=== PATIENT | male | born 1950 | race Caucasian/White ===

== ENCOUNTER 2017-02-04 16:54 | Inpatient (IN) | payer MEDICARE, MEDICAID ==
[2017-02-04 19:37] LABS: Hematocrit 36 % (42-52); Hemoglobin 12.5 g/dl (14.0-18.0); Mean Corpuscular HGB Conc 34 g/dl (31-36); Mean Corpuscular Hemoglobin 31 pg (27-31); Mean Corpuscular Volume 90 fL (80-94); Mean Platelet Volume 8 um3 (7.4-10.4); Red Blood Count 4.05 10^6/ul (4.0-5.4); Red Cell Distribution Width 14 % (10.5-15); White Blood Count 8.8 10^3/ul (3.5-10.8)
[2017-02-04 19:46] LABS: Alcohol < 10 mg/dL (<10)
[2017-02-04 19:47] LABS: Albumin 3.6 g/dL (3.2-5.2); Anion Gap 6 mmol/L (2-11); BUN/Creatinine Ratio 40.6 (8-20); Blood Urea Nitrogen 39 mg/dL (6-24); CO2 Carbon Dioxide 32 mmol/L (22-32); Calcium 9.6 mg/dL (8.6-10.3); Chloride 100 mmol/L (101-111); EGFR African American 100.5 (>60); EGFR Non-African American 78.1 (>60); Glucose 100 mg/dL (70-100); Sodium 138 mmol/L (133-145); Total Protein 6.5 g/dL (6.4-8.9)
[2017-02-04 19:48] LABS: ALT 24 U/L (7-52); AST 41 U/L (13-39); Alkaline Phosphatase 124 U/L (34-104); C Reactive Protein 11.43 mg/L (< 5.00); Globulin 2.9 g/dL (2-4)
[2017-02-04 19:49] LABS: Troponin I 0.01 ng/mL (<0.04)
[2017-02-04 20:59] LABS: TSH (Thyroid Stimulating Horm) 1.95 mcIU/mL (0.34-5.60)
[2017-02-04] MEDS ORDERED: CMCS: Melatonin (NF) 3 MG TAB PO PRN (22:18)
[2017-02-04] MEDS ORDERED: Albuterol 2.5 MG/3 ML NEB.SOL* (0.083%) INH PRN (22:18)
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
[2017-02-05 03:06] LABS: Urine Bilirubin Negative (Negative); Urine Glucose Negative (Negative); Urine Nitrite Negative (Negative)
[2017-02-05] MEDS: Omeprazole CAP* 20 MG PO SCH (05:59)
[2017-02-05] MEDS: Docusate CAP* 100 MG PO SCH ×2 (09:40→21:21)
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
[2017-02-05] MEDS: Heparin VIAL(*) 5000 UNITS/ML VIAL (FIVE THOUSAND) SUBCUT SCH ×2 (13:52→21:21)
[2017-02-05] MEDS: Acetaminophen TAB* 325 MG PO PRN (21:21)
[2017-02-06] MEDS: Heparin VIAL(*) 5000 UNITS/ML VIAL (FIVE THOUSAND) SUBCUT SCH ×3 (06:26→21:45)
[2017-02-06] MEDS: Omeprazole CAP* 20 MG PO SCH (06:26)
[2017-02-06 07:15] LABS: Benzodiazepine Urine Screen None Detected (None Detect)
[2017-02-06] MEDS: Docusate CAP* 100 MG PO SCH ×2 (08:37→21:45)
--- NOTE | 2017-02-06 15:02 | RAD ---
INDICATION: Bilateral foot pain. Fall. COMPARISON: None TECHNIQUE: AP, lateral, and oblique views of each foot were obtained. FINDINGS: Right foot:. There are no acute bony findings. There is minor first MTP joint osteoarthritis and there is mild underlying osteopenia. The soft tissues are intact. Left foot: There is no acute bony change. There is minor first MTP joint osteoarthritis. There is underlying osteopenia. The soft tissues are normal. IMPRESSION: NO ACUTE BONY FINDINGS.
[2017-02-07] MEDS: Omeprazole CAP* 20 MG PO SCH (05:22)
[2017-02-07] MEDS: Heparin VIAL(*) 5000 UNITS/ML VIAL (FIVE THOUSAND) SUBCUT SCH ×3 (05:23→21:22)
[2017-02-07] MEDS: Docusate CAP* 100 MG PO SCH ×2 (10:52→21:22)
[2017-02-07] MEDS: Acetaminophen TAB* 325 MG PO PRN (21:30)
[2017-02-08] MEDS: Heparin VIAL(*) 5000 UNITS/ML VIAL (FIVE THOUSAND) SUBCUT SCH ×3 (06:10→21:06)
[2017-02-08] MEDS: Omeprazole CAP* 20 MG PO SCH (06:10)
[2017-02-08] MEDS: Docusate CAP* 100 MG PO SCH ×2 (10:03→21:06)
[2017-02-09] MEDS: Omeprazole CAP* 20 MG PO SCH (05:23)
[2017-02-09] MEDS: Heparin VIAL(*) 5000 UNITS/ML VIAL (FIVE THOUSAND) SUBCUT SCH ×3 (05:23→21:22)
[2017-02-09] MEDS: Acetaminophen TAB* 325 MG PO PRN (07:37)
[2017-02-09] MEDS: Docusate CAP* 100 MG PO SCH ×2 (07:37→21:22)
[2017-02-10] MEDS: Heparin VIAL(*) 5000 UNITS/ML VIAL (FIVE THOUSAND) SUBCUT SCH ×3 (06:05→21:10)
[2017-02-10] MEDS: Omeprazole CAP* 20 MG PO SCH (06:05)
[2017-02-10] MEDS: Acetaminophen TAB* 325 MG PO PRN (08:50)
[2017-02-10] MEDS: Docusate CAP* 100 MG PO SCH ×2 (08:50→21:10)
[2017-02-11] MEDS: Acetaminophen TAB* 325 MG PO PRN (04:14)
[2017-02-11] MEDS: Heparin VIAL(*) 5000 UNITS/ML VIAL (FIVE THOUSAND) SUBCUT SCH ×3 (05:53→21:49)
[2017-02-11] MEDS: Omeprazole CAP* 20 MG PO SCH (05:53)
[2017-02-11] MEDS: Docusate CAP* 100 MG PO SCH ×2 (07:48→20:18)
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
[2017-02-12] MEDS: Omeprazole CAP* 20 MG PO SCH (05:42)
[2017-02-12] MEDS: Heparin VIAL(*) 5000 UNITS/ML VIAL (FIVE THOUSAND) SUBCUT SCH ×3 (05:43→21:26)
[2017-02-12] MEDS: Docusate CAP* 100 MG PO SCH ×2 (08:29→21:26)
[2017-02-12] MEDS: Acetaminophen TAB* 325 MG PO PRN (10:14)
[2017-02-13] MEDS: Heparin VIAL(*) 5000 UNITS/ML VIAL (FIVE THOUSAND) SUBCUT SCH ×3 (06:33→22:35)
[2017-02-13] MEDS: Omeprazole CAP* 20 MG PO SCH (06:33)
[2017-02-13] MEDS: Docusate CAP* 100 MG PO SCH ×2 (09:06→22:35)
[2017-02-14] MEDS: Heparin VIAL(*) 5000 UNITS/ML VIAL (FIVE THOUSAND) SUBCUT SCH (06:41)
[2017-02-14] MEDS: Omeprazole CAP* 20 MG PO SCH (06:42)
[2017-02-14 08:12] VITALS: BP 107/64
[2017-02-14] MEDS: Docusate CAP* 100 MG PO SCH (08:28)
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
== END 2017-02-14 12:45 | DRG 57 ==
LOC: ED 16:54 → MED 22:13
PROVIDERS: ADMIT Hospitalist; ATTEND Internal Medicine
DX: G31.84 Mild cognitive impairment of uncertain or unknown etiology (principal); L89.151 Pressure ulcer of sacral region, stage 1; T76.91XA Unspecified adult maltreatment, suspected, initial encounter; Z74.2 Need for assistance at home and no other household member able to render care; I10 Essential (primary) hypertension; X58.XXXA Exposure to other specified factors, initial encounter; Y92.008 Other place in unspecified non-institutional (private) residence as the place of occurrence of the external cause; Z87.891 Personal history of nicotine dependence; Z83.3 Family history of diabetes mellitus; Z82.49 Family history of ischemic heart disease and other diseases of the circulatory system
CPT/HCPCS: 36415; 80053; 80307; 80320; 81003; 83605; 83735; 84443; 84484; 85025; 86140; A9270-GY; G0480; J1644

== ENCOUNTER 2019-05-25 11:46 | Emergency (ER) | payer MEDICARE, MEDICAID ==
[2019-05-25] MEDS ORDERED: NS 0.9% 1000 ML** 1,000 ML IV ONE (11:54)
--- NOTE | 2019-05-25 11:57 | ED ---
Lower Extremity - HPI Summary HPI Summary: This pt is a 69 Y/O M presenting to [facility] by EMS from [facility] for a CC of increased weakness and pain over the last couple days. He states that he has been feeling weaker and in more pain than usual. He states that he has a Hx of edema in his ankles and has seen no increase. He is unable to move his L hip through a full ROM due to the pain. He denies any fevers, chills, SOB , and CP. He is currently dehydrated. He states that movement and standing cause increased pain in his L hip. He is He has a Hx of HTN. He states that he has chronic L hip pain due to a surgery in 1981. - History of Current Complaint Chief Complaint: EDAltMentalStatus Stated Complaint: FALL PER EMS Time Seen by Provider: 05/25/19 11:49 Hx Obtained From: Patient, EMS Mechanism Of Injury: Fall From A Standing Position Onset of Pain: Immediate Onset/Duration: Still Present Severity Initially: Moderate Severity Currently: Moderate Pain Scale Used: 0-10 Numeric Timing: Constant Location: Is Discrete @ - L hip Associated Signs And Symptoms: Positive: Negative - chills, SOB, and CP, Weakness, Other - bilateral ankle edema. Negative: Fever Aggravating Factor(s): Standing, Movement Alleviating Factor(s): Nothing - Allergies/Home Medications Allergies/Adverse Reactions: Allergies Allergy/AdvReac Type Severity Reaction Status Date / Time No Known Allergies Allergy Verified 05/25/19 11:53 PMH/Surg Hx/FS Hx/Imm Hx Previously Healthy: Yes Cardiovascular History: Reports: Hx Hypertension Musculoskeletal History: Reports: Other Musculoskeletal History - L hip chronic pain Sensory History: Reports: Hx Contacts or Glasses Denies: Hx Hearing Aid Opthamlomology History: Reports: Hx Contacts or Glasses - Cancer History Hx Chemotherapy: No Hx Radiation Therapy: No - Surgical History Surgical History: Yes Other Surgical History: L hip surgery in 1982 - Immunization History Immunizations Up to Date: Yes Infectious Disease History: Denies: Traveled Outside the [place] in Last 30 Days - Family History Known Family History: Positive: Hypertension - Social History Occupation: Retired Lives: At [facility] Alcohol Use: Occasionally Hx Substance Use: No Substance Use Type: Reports: None Hx Tobacco Use: Yes Smoking Status (MU): Former Smoker Type: Cigarettes Review of Systems Negative: Fever, Chills Negative: Chest Pain Negative: Shortness Of Breath Negative: Vomiting, Nausea Positive: Decreased ROM - L leg due to pain from L hip , Edema - bilateral ankles , Other - L hip pain Positive: Weakness All Other Systems Reviewed And Are Negative: Yes Physical Exam - Summary Physical Exam Summary: VITAL SIGNS: Reviewed. GENERAL: Patient is a well-developed and nourished Elderly male who is lying comfortable in the stretcher. Patient is not in any acute respiratory distress. HEAD AND FACE: No signs of trauma. No ecchymosis, hematomas or skull depressions. No sinus tenderness. EYES: PERRLA, EOMI x 2, No injected conjunctiva, no nystagmus. EARS: Hearing grossly intact. Ear canals and tympanic membranes are within normal limits. MOUTH: Oropharynx within normal limits. Oral mucosa is very dry NECK: Supple, trachea is midline, no adenopathy, no JVD, no carotid bruit, no c- spine tenderness, neck with full ROM. CHEST: Symmetric, no tenderness at palpation LUNGS: Clear to auscultation bilaterally. No wheezing or crackles. CVS: Regular rate and rhythm, S1 and S2 present, no murmurs or gallops appreciated. ABDOMEN: Soft, non-tender. No signs of distention. No rebound no guarding, and no masses palpated. Bowel sounds are normal. EXTREMITIES: FROM in all major joints, no edema, no cyanosis or clubbing. Decreased ROM and pain in the L lower extremity due to L hip pain Bilateral lower extremity edema 1+ NEURO: alert but confused. No acute neurological deficits. Speech is normal and follows commands. SKIN: Dry and warm. Increase in Brett of skin Triage Information Reviewed: Yes Vital Signs On Initial Exam: Temp Pulse Resp BP SpO2 FiO2 97.8 F 97 16 163/123 93 05/25/19 11:49 05/25/19 11:49 05/25/19 11:49 05/25/19 11:49 05/25/19 11:49 Vital Signs Reviewed: Yes Procedures - Sedation Patient Received Moderate/Deep Sedation with Procedure: No Diagnostics - Laboratory Result Diagrams: 05/25/19 12:08 05/25/19 12:08 Lab Statement: Any lab studies that have been ordered have been reviewed, and results considered in the medical decision making process. - Radiology CXR Radiology Interpretation Completed By: Radiologist Summary of Radiographic Findings: Stigmata of obstructive lung disease. No acute pulmonary or cardiac process evident. ED physician has reviewed this report. 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 ED physician has reviewed this report. - CT Brain CT CT Interpretation Completed By: Radiologist Summary of CT Findings: No traumatic injury or acute intracranial process evident. Negative exam. ED physician has reviewed this report. - EKG 1211 Cardiac Rate: NL - 65 BPM EKG Rhythm: Atrial Fibrillation ST Segment: Normal Ectopy: None - An EKG at 1211 reveals AFIB at 65 BPM, nml axis, nml intervals. No STEMI. N 1209 Cardiac Rate: NL EKG Rhythm: Sinus Rhythm ST Segment: Normal Ectopy: None Summary of EKG Findings: An EKG at 1209 reveals NSR at 91 BPM, nml axis, nml intervals. No STEMI. No acute changes. Interpreted by Dr. Greenberg at 1210 2019. Lower Extremity Course/Dx - Course Assessment/Plan: This pt is a 69 Y/O M presenting to [facility] by EMS from [facility] for a CC of increased weakness and pain over the last couple days. He states that he has been feeling weaker and in more pain than usual. He states that he has a Hx of edema in his ankles and has seen no increase. He is unable to move his L hip through a full ROM due to the pain. He denies any fevers, chills, SOB, and CP. He is currently dehydrated. He states that movement and standing cause increased pain in his L hip. He is He has a Hx of HTN. He states that he has chronic L hip pain due to a surgery in 1981. Chest x -ray impression: Stigmata for DISEASE. NO ACUTE PULMONARY OR CARDIAC PROCESS EVIDENT. Blood work without a significant abnormality except for glucose of 127 , urinalysis is negative for UTI. Head CT impression: No traumatic injury or acute interconnected process evident. In the ED course the patient was given IV fluids for rehydration. 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 Since all work up is found to be within normal limits, and patient is feeling better, he will be discharged home with f/u with PCP. He was given tylenol. He has no other complaints. [facility] - Diagnoses Provider Diagnoses: Weakness, Chronic hip pain Discharge ED - Sign-Out/Discharge Documenting (check all that apply): Patient Departure - discharge - Discharge Plan Condition: Stable Disposition: HOME Patient Education Materials: Weakness (ED) Referrals: [facility] [Outside] - 2 Days Additional Instructions: PLEASE RETURN TO THE EMERGENCY DEPARTMENT FOR ANY NEW OR WORSENING SYMPTOMS AND FOLLOW UP WITH THE [facility] IN 1-3 DAYS FOR TO HELP FIND A PRIMARY CARE PHYSICIAN. - Billing Disposition and Condition Condition: STABLE Disposition: Home - Attestation Statements Document Initiated by Scribe: Yes Documenting Scribe: Rome Wilson Provider For Whom Ioanaibe is Documenting (Include Credential): Satya Greenberg MD Scribe Attestation: Rome Gonzales scribed for Satya Greenberg MD on 05/25/19 at 2131. Scribe Documentation Reviewed: Yes Provider Attestation: The documentation as recorded by the Rome myers accurately reflects the service I personally performed and the decisions made by Satya eagle MD Status of Scribe Document: Viewed
[2019-05-25 12:25] LABS: ABS Lymphocytes 0.4 10^3/ul (1.0-4.8); ABS Monocytes 0.2 10^3/ul (0-0.8); ABS Neutrophils 7.5 10^3/ul (1.5-7.7); Hematocrit 43 % (42-52); Hemoglobin 14.5 g/dL (14.0-18.0); Lymphocyte % 4.9 %; Mean Corpuscular HGB Conc 34 g/dL (31-36); Mean Corpuscular Hemoglobin 30 pg (27-31); Mean Corpuscular Volume 89 fL (80-94); Mean Platelet Volume 8.9 fL (7.4-10.4); Nucleated Red Blood Cells % 0.1; Platelet Count 243 10^3/uL (150-450); Red Blood Count 4.81 10^6 /uL (4.18-5.48); Red Cell Distribution Width 13 % (10-15); White Blood Count 8.2 10^3/uL (3.5-10.8)
[2019-05-25 12:36] LABS: ALT 14 U/L (7-52); AST 19 U/L (13-39); Albumin 3.9 g/dL (3.2-5.2); Albumin/Globulin Ratio 1.4 (1-3); Alkaline Phosphatase 103 U/L (34-104); Anion Gap 6 mmol/L (2-11); BUN/Creatinine Ratio 19.8 (8-20); Blood Urea Nitrogen 18 mg/dL (6-24); CO2 Carbon Dioxide 28 mmol/L (22-32); Chloride 104 mmol/L (101-111); Creatine Kinase 125 U/L (10-223); EGFR African American 99.7 (>60); EGFR Non-African American 82.4 (>60); Globulin 2.7 g/dL (2-4); Glucose 127 mg/dL (70-100); Potassium 3.8 mmol/L (3.5-5.0); Sodium 138 mmol/L (135-145); Total Protein 6.6 g/dL (6.4-8.9)
[2019-05-25 12:38] LABS: Troponin I 0.01 ng/mL (<0.03)
[2019-05-25 12:51] LABS: Urine Appearance Clear; Urine Bilirubin Negative (Negative); Urine Blood Negative (Negative); Urine Color Yellow; Urine Glucose Negative (Negative); Urine Ketones Negative (Negative); Urine Nitrite Negative (Negative); Urine Protein 1+(30 mg/dL) (Negative); Urine Specific Gravity 1.015 (1.010-1.030); Urine Urobilinogen Negative (Negative)
[2019-05-25 12:57] LABS: Acetaminophen < 15 mcg/mL; Alcohol < 10 mg/dL (<10); Salicylate < 2.50 mg/dL (<30)
[2019-05-25 13:11] LABS: TSH (Thyroid Stimulating Horm) 0.96 mcIU/mL (0.34-5.60)
[2019-05-25 13:12] LABS: Urine Bacteria Absent (Absent); Urine Red Blood Cell Absent (Absent); Urine White Blood Cell Absent (Absent)
[2019-05-25 14:59] VITALS: BP 170/107
[2019-05-25] MEDS ORDERED: Acetaminophen TAB* 325 MG PO ONE (15:58)
== END 2019-05-25 15:17 | disposition home or self-care (01) ==
LOC: ED 11:46
DX: R53.1 Weakness (principal); M25.552 Pain in left hip; G89.29 Other chronic pain; I10 Essential (primary) hypertension; Z87.891 Personal history of nicotine dependence; M16.52 Unilateral post-traumatic osteoarthritis, left hip; T14.90XS Injury, unspecified, sequela
CPT/HCPCS: 36415; 70450; 71045; 80053; 80320; 80329; 81003; 81015; 82140; 82550; 83605; 83735; 84443; 84484; 85025; 87040; 93005; 96360; 96361; 99284; A9270-GY; G0480